=== PATIENT | male | born 1945 | race Caucasian/White ===

== ENCOUNTER 2016-04-06 08:00 | Outpatient (CLI) | payer MEDICARE, OTHER | END 2016-04-06 23:59 | disposition home or self-care (01) | DX: E11.9 Type 2 diabetes mellitus without complications (principal) ==

== ENCOUNTER 2019-02-18 12:53 | Outpatient (CLI) | payer MEDICARE, OTHER ==
[2019-02-18 13:46] VITALS: BP 146/69
--- NOTE | 2019-02-18 13:46 | SLEEP CARE CONSULTATION ---
Information from patient questionnaire entered by Triny Alvarez. I have reviewed and concur with the information entered by Triny Alvarez. This document represents the service I personally performed and the decisions made by me, Vicky Santiago MD, [facility]. History of Present Illness Reason for Visit: New patient, Previously diagnosed sleep apnea, sleep apnea on CPAP therapy, Re-establish care Chief Complaint: reports: Snoring Duration of Symptoms: 9 years Usual bedtime: 2230 Time it takes to fall asleep: 15 minutes Snores at night: Yes (without CPAP) Observed to quit breathing while asleep: No Number of times waking at night: 2-3 Reasons for waking at night: reports: Bathroom Toss, Turn, or Twitch while sleeping: Yes Recalls having dreams: Yes Usually gets out of bed at: 0800 Feels refreshed in the morning: No Morning headache: No Sleepy or fatigued during the day: No Ever fallen asleep while driving: No Takes day naps: Yes (sometimes ) Dreams during day naps: No Prior sleep studies: Yes Year and Where: 2008 [facility] Additional HPI information: I had the pleasure of seeing Mr. Craig today regarding obstructive sleep apnea- hypopnea. As you know, he is a 73 year old gentleman who was diagnosed with the sleep-disordered breathing here in 2008. The AHI was 11.3, and lady oxygen saturation, 85%. He was prescribed a CPAP device set at 7 12 cmH2O. He uses every night and all night. The compliance data show usage in 151 out of the past 180 nights, averaging 8.3 hours a night. The few nights he did not use it was because he used his old machine while sleeping in the living room. The residual AHI is 4.6 and average time in large leak per day is 2 seconds. He wears a ResMed Quattro full face mask. He got his supplies from [employer]. He finds the treatment very beneficial. CPAP Compliance Data - Data Reviewed with Patient Average duration of nightly device use: 8h 17m Compliance rate %: 80.6 Current pressure setting (cmH2O): 10-11 Humidity settin Heated hose settin Average residual AHI: 4.6 Average large leak: 2s Subjective Initial Lincoln Sleepiness Scale score: 6 Past Medical History Past Medical History: reports: Diabetes, Arthritis, Gout, Impotence, Other (kidney failure) Social History The patient's occupation is retired. Patient is and lives in [place]. Have you smoked in the past 12 months: No Alcohol use: No Caffeine use: Yes Caffeine amount and frequency: 1-2 cans soda/day Family History Family history of sleep disordered breathing: No Allergies and Home Medications Drug allergies reviewed: Yes Home medication list reviewed: Yes Review of Systems Cardiovascular: reports: high blood pressure, irregular heart rate or pulse, leg or foot swelling Respiratory: denies: shortness of breath, wheeze, sputum production, chronic cough, other Gastrointestinal: denies: heartburn, difficulty swallowing, nausea, vomitting, diarrhea, abdominal pain, other Urinary: reports: impotence Neurological: denies: headaches, seizure, head trauma, disorientation, speech dysfunction, gait or balance problems, fainting or unconsciousness, other Psychiatric: denies: Attention Deficit Hyperactivity, anxiety, depression, mood disorder, claustrophobia, other Ear/Nose/Throat: reports: wisdom teeth removed Endocrine: reports: thyroid disease Musculoskeletal: reports: joint pain, back pain, muscle pain or cramping Immunologic: reports: itching Physical Exam Vital signs obtained and entered by: Dr. Santiago Blood Pressure: 146/69 Heart Rate: 48 O2 Saturation: 97 Height: 5 ft 10 in Weight: 220 lb Body Mass Index: 31.5 BMI Classification: Obesity Class 1 Neck circumference: 18.5 Mood/affect: normal HEENT: No craniofacial malformation Nostrils: patent to airflow Turbinates: normal Septum: midline Mouth and throat: narrow oropharynx Soft palate: long Hard palate: normal Uvula: normal Uvula visualization: 50% Mallampati Class II Tongue: normal in size Tonsils: absent bilaterally Chin and jaw: normal size and position Neck: normal w/o lymphadenopathy or thyromegaly Heart: regular rate and rhythm (bradycardic) Lungs: clear bilaterally Abdomen: soft, non-tender Extremities: no edema or clubbing Neurologic: intact, no focal deficits Impression and Plan IMPRESSION: 1. Obstructive Sleep Apnea-Hypopnea Syndrome, mild, as previously diagnosed. The patient has had good treatment compliance. The current pressure setting appears effective and comfortable. The patient experiences improvement on the treatment. Narrow oropharynx and obesity are common predisposing factors for obstructive sleep apnea-hypopnea syndrome. I will order him new supplies today. Plan: 1. Prescription made for supplies. 2. Try ResMed AirTouch F-20 full face mask. 3. Try to lose weight. 4. Return for follow up in a year or earlier if there is any problem. I spent 100% of this 20 minute visit face to face with the patient with greater than 50% of this was spent time counseling the patient and coordination of care.
== END 2019-02-18 12:54 | disposition home or self-care (01) ==
LOC: SC 12:53
PROVIDERS: ATTEND Internal Medicine Pulmonary Disease
DX: G47.33 Obstructive sleep apnea (adult) (pediatric) (principal); E66.9 Obesity, unspecified; Z68.31 Body mass index [BMI] 31.0-31.9, adult

== ENCOUNTER 2020-01-27 11:01 | Outpatient (CLI) | payer MEDICARE, OTHER ==
--- NOTE | 2020-01-27 11:29 | SLEEP CARE CONSULTATION ---
Information from patient questionnaire entered by Arabella Young. I have reviewed and concur with the information entered by Arabella Young. This document represents the service I personally performed and the decisions made by , Marce Leos ARNP. History of Present Illness Service Date and Time: 01/27/2020 1101 Previous diagnosis: Mild, Obstructive Sleep Apnea-Hypopnea Syndrome AHI: 11.3 (in 2008) Reason for follow up: first compliance after device update Equipment type: CPAP Equipment obtained from: [employer] (getting supplies as needed) Mask style: Full face (AirTouch F20) Backup mask available: Yes (old mask) Last cushion change: 3 weeks ago Prior sleep studies: Yes Year and Where: 2008 - [facility] additional information: STEFANI SMITH JR was diagnosed to have mild, AHI 11.3, obstructive sleep apnea-h ypopnea syndrome and returned today for CPAP therapy first compliance after device update follow-up. CPAP Compliance Data - Data Reviewed with Patient Average duration of nightly device use: 9.9 Compliance rate %: 90 Current pressure setting (cmH2O): 10-11 Humidity settin Heated hose settin Average residual AHI: 1.4 Average large leak: 1 min 17 sec Subjective Patient concerns: reports: dry mouth, nose, throat (dry mouth, arben in the morning). denies: aerophagia, mask discomfort, air blowing in eyes, mask leak noise, condensation in mask/hose, nasal congestion, epistaxis, other Observed to snore while using device: No Current pressure setting perceived as: comfortable On therapy, patient: reports: sleeping better, being more awake and alert during the day, more rested overall. denies: awakening more refreshed (has stage 4 kidney cancer), drowsiness while driving Initial [place]tt Sleepiness Scale score: 8 (in 2008) Current [place]tt Sleepiness Scale score: 4 Allergies and Home Medications Drug allergies reviewed: Yes (NKDA) Home medication list reviewed: Yes (no changes) Review of Systems Review of systems same as previous: Yes (no changes) Physical Exam Heart Rate: 93 O2 Saturation: 99 Height: 5 ft 9 in Weight: 224 lb Body Mass Index: 33.0 BMI Classification: Obese Impression and Plan 1. Obstructive Sleep Apnea-Hypopnea Syndrome, mild, with good treatment compliance and good apnea control. On CPAP therapy, the patient has better sleep quality and is more rested overall. He has had some dry mouth in the morning. Oral dryness can be reduced by adjusting humidity setting higher or heated hose lower or by adjusting both settings. He voiced understanding and agreement to plan of care. I reviewed with patient to call with any problems with pressure feeling too much or too little or if he experiences aerophagia. Patient's apnea severity and rationale for treatment to reduce apnea, improve sleep quality and reduce cardiovascular and cerebrovascular events was reviewed. I also reviewed the benefit of consistent device use of CPAP for his diabetes. * Continue autoCPAP pressure at 10-11 cmH2O * Notify me if snoring with mask or feeling that the pressure is too much or too little * Attempt to lose weight * Call this office if any problems using CPAP * Return for follow up in 1 year, or sooner if concerns arise Counseling Topics: Spare mask, Weight loss health impact Visit Type: In Office Time Spent with Patient (minutes): 16 Provider Statement: I spent 100% of the Face to Face Visit with the patient with greater than 50% spent counseling the patient and coordination of care.
== END 2020-01-27 11:02 | disposition home or self-care (01) ==
LOC: SC 11:01
PROVIDERS: ATTEND Nurse Practitioner Family
DX: G47.33 Obstructive sleep apnea (adult) (pediatric) (principal); E66.9 Obesity, unspecified; Z68.33 Body mass index [BMI] 33.0-33.9, adult
CPT/HCPCS: 99212; G0463

== ENCOUNTER 2020-11-15 10:38 | Outpatient (CLI) | payer MEDICARE, OTHER ==
--- NOTE | 2020-11-22 14:36 | ONCOLOGY/HEMATOLOGY VISIT ---
HEME/ONC PROGRESS NOTE: cc: Kasi Lee MD; Mary Fitzgerald MD HEM/ONCOLOGY HISTORY: 1. 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 a. Hypercalcemia, renal failure and anemia. No kidney biopsy per educational assistant teacher recommendation. b. Bone marrow biopsy in 02/2020. Negative Congo red stain. Normal plasma cell phenotype by flow cytometry. No light chain restriction. Negative SPEP, UPEP and skeletal survey. c. Active monitoring for myeloma or amyloidosis. 2. Stage IV kidney disease, Fistula placed no dialysis yet ASSESSMENT/PLAN: 1. Elevated free kappa light chain. Level is higher at last time including the ratio. However stable anemia and renal failure. No hypercalcemia. a. We will have a short interval to repeat [place]/lambda light chain ratio. If again on the rise, we will consider repeat myeloma staging work-up such as PET/CT scan of the body which would be more sensitive. Hip replacement preventing MRI. b. RN will call me and him To follow-up on the most recent light chain blood draw result which is not available yet at this point; c. Repeat blood test in 2-month. Will also add amyloidosis marker such as pro-NT-BNP 2.Renal failure and diabetes and sleep apnea. Continue to see other specialist. HISTORY OF CURRENT ILLNESS/REVIEW OF SYSTEMS: As dictated on 04/12/20 for detailed history. Dion is here for ongoing care regarding above issues. Overall condition has been stable since last seen.Physically quite active taking of yard and housework. Chronic lower back pain without any change in quality. PFSH. Diabetes on insulin. Bilateral hip replacement preventing MRI of the bone marrow. Sleep apnea on CPAP. Hard hearing. PHYSICAL EXAM: Weight 101 kg. BP 156/64. HEENT; no jaundice, Lung; clear to auscultation and percussion. No signs of pleural effusion by percussion. Heart; regular rhythm no murmur Abdomen; soft nontender, no hepatosplenomegaly, no signs of ascites. Central obesity noted. Extremity; no clubbing, no peripheral edema, no cyanosis, Skin. No new rash. No petechia or purpura. Lymph nodes: no palpable adenopathy in the cervical, supeerclavicular fossa, or axilla areas. [place]/lambda 127/41=3.09 done 7 weeks ago; pending recent draw results. Clinical Data: Allergies No Known Drug Allergies Allergy (Verified 10/11/20 14:29) Home Medications Aspirin Chewable [[facility] [place] F Aspirin] 81 mg PO DAILY 01/19/20 [History Last Taken Unknown] Colchicine 0.6 mg PO DAILY 01/19/20 [History Last Taken Unknown] Fluocinonide [Fluocinonide 0.05% solution] 60 ml PO DAILY 01/19/20 [History Last Taken Unknown] Furosemide 40 mg PO DAILY 01/19/20 [History Last Taken Unknown] Hydralazine HCl 50 mg PO DAILY 01/19/20 [History Last Taken Unknown] Insulin Glargine [Lantus Solostar] 20 ml IM DAILY 01/19/20 [History Last Taken Unknown] Levothyroxine Sodium 88 mcg PO DAILY 01/19/20 [History Last Taken Unknown] NIFEdipine [Procardia Xl] 30 mg PO TID 01/19/20 [History Last Taken Unknown] Simvastatin 20 mg PO DAILY 01/19/20 [History Last Taken Unknown] Spironolactone 25 mg PO DAILY 01/19/20 [History Last Taken Unknown] Terazosin HCl 5 mg PO DAILY 01/19/20 [History Last Taken Unknown]
== END 2020-11-15 10:39 | disposition home or self-care (01) ==
LOC: LAB.N 10:38
PROVIDERS: ATTEND Family Medicine
DX: E83.52 Hypercalcemia (principal); Z53.9 Procedure and treatment not carried out, unspecified reason
CPT/HCPCS: 36415; 80048; 82310; 83883; 85027

== ENCOUNTER 2021-03-08 12:48 | Outpatient (CLI) | payer MEDICARE, OTHER ==
--- NOTE | 2021-03-08 13:24 | SLEEP CARE CONSULTATION ---
Information from patient questionnaire entered by Kalyani Gloria MA. I have reviewed and concur with the information entered by Kalyani Gloria MA. This document represents the service I personally performed and the decisions made by , Marce Leos ARNP. History of Present Illness Service Date and Time: 03/08/2021 1248 Previous diagnosis: Mild, Obstructive Sleep Apnea-Hypopnea Syndrome AHI: 11.3 (in 2008) Reason for follow up: annual Equipment type: CPAP Equipment obtained from: [employer] (getting supplies as needed) Mask style: Full face (AirTouch F20) Backup mask available: Yes (old mask) Last cushion change: 2 weeks Prior sleep studies: Yes Year and Where: 2008 - [facility] HPI additional information: STEFANI SMITH was diagnosed to have mild, AHI 11.3, obstructive sleep apnea- hypopnea syndrome and returned today for CPAP therapy annual follow-up. Sleep Study - Results Prior sleep studies: Yes Year and Where: 2008 - [facility] CPAP Compliance Data - Data Reviewed with Patient Average duration of nightly device use: 9 HOURS 24 MINUTES Compliance rate %: 87.2 Current pressure setting (cmH2O): 10-11 Humidity settin Heated hose settin Average residual AHI: 1.8 Average large leak: 1 MINUTE 12 SECONDS Subjective Patient concerns: denies: aerophagia, mask discomfort, air blowing in eyes, mask leak noise, condensation in mask/hose, nasal congestion, dry mouth, nose, throat, epistaxis, other Observed to snore while using device: No Current pressure setting perceived as: too low On therapy, patient: reports: sleeping better, awakening more refreshed, being more awake and alert during the day, more rested overall. denies: drowsiness while driving Initial [place] Sleepiness Scale score: 8 (in 2008) Current [place] Sleepiness Scale score: 2 Allergies and Home Medications Home medication list reviewed: Yes (no changes) Review of Systems Review of systems same as previous: Yes (no changes) Physical Exam Vital signs obtained and entered by: Ricardo GALVAN Blood Pressure: 144/78 (right) Cuff size: wrist Heart Rate: 63 O2 Saturation: 98 (with mask) Height: 5 ft 9 in Weight: 224 lb (per PT info) Body Mass Index: 33.0 BMI Classification: Obese Impression and Plan 1. Obstructive Sleep Apnea-Hypopnea Syndrome, mild, with good treatment compliance and good apnea control. On CPAP therapy, the patient has better sleep quality and is more rested overall. Patient states the pressure might be just a little low and is asking for a slight increase. I will adjust his pressure to 10-12 cmH2O. Patient will let me know if the pressure still feels to low or is uncomfortable. Patient is satisfied with current CPAP therapy and has significant improvement of his sleep apnea. This last year his DreamStation went on recall. He scented back to [facility] and he received a new DreamStation 2 that he started and has good treatment compliance. Patient's apnea severity and rationale for treatment to reduce apnea, improve sleep quality and reduce cardiovascular and cerebrovascular events was reviewed. I also reviewed the benefit of consistent device use of CPAP for diabetes. Patient was encouraged to lose weight for their overall health and to reduce apneas. * Change auto CPAP pressure to 10-12 cmH2O * Notify me if snoring with mask or feeling that the pressure is too much or too little * Attempt to lose weight * Call this office if any problems using CPAP * Return for follow up in 1 year, or sooner if concerns arise Counseling Topics: Spare mask, Weight loss health impact Visit Type: In Office Time Spent with Patient (minutes): 12 Provider Statement: I spent 100% of the Face to Face Visit with the patient with greater than 50% spent counseling the patient and coordination of care.
[2021-03-08 13:25] VITALS: BP 144/78
== END 2021-03-08 12:49 | disposition home or self-care (01) ==
LOC: SC 12:48
PROVIDERS: ATTEND Nurse Practitioner Family
DX: G47.33 Obstructive sleep apnea (adult) (pediatric) (principal); E66.9 Obesity, unspecified; Z68.33 Body mass index [BMI] 33.0-33.9, adult
CPT/HCPCS: 99212; G0463

== ENCOUNTER 2021-05-03 10:24 | Outpatient (CLI) | payer MEDICARE, OTHER | END 2021-05-03 10:25 | disposition home or self-care (01) | LOC: LAB.N 10:24 | PROVIDERS: ATTEND Internal Medicine Hematology & Oncology | DX: Z53.9 Procedure and treatment not carried out, unspecified reason (principal) ==

== ENCOUNTER 2021-11-22 11:41 | Outpatient (CLI) | payer MEDICARE, OTHER ==
[2021-11-22 18:38] LABS: ALBUMIN 4.1 g/dL (3.2-5.5); ALBUMIN/GLOBULIN RATIO 1.3 (1.0-2.2); ALKALINE PHOSPHATASE 105 IU/L (42-121); ALT ALANINE AMINOTRANSFERASE 21 IU/L (10-60); AST ASPARTATE AMINOTRANSFERASE 20 IU/L (10-42); BILIRUBIN,TOTAL 0.9 mg/dL (0.2-1.0); BUN - BLOOD UREA NITROGEN 65 mg/dL (6-20); CALCIUM 9.9 mg/dL (8.5-10.3); CARBON DIOXIDE - CO2 21 mmol/L (21-32); CHLORIDE 105 mmol/L (101-111); CHOL/HDL RATIO 3.4 (<5.0); CHOLESTEROL 139 mg/dL; CREATININE 4.7 mg/dL (0.6-1.2); GFR - MDRD 12 (>89); GLUCOSE 101 mg/dL (70-100); HDL CHOLESTEROL 41 mg/dL; LDL CHOLESTEROL,CALCULATED 80 mg/dL; POTASSIUM 4.2 mmol/L (3.5-5.0); SODIUM 137 mmol/L (135-145); TOTAL PROTEIN 7.2 g/dL (6.7-8.2); TRIGLYCERIDES 89 mg/dL; VLDL CHOLESTEROL 18 mg/dL
[2021-11-22 18:55] LABS: MICROALBUM/CREATININE RATIO,UR 253.3 ug/mg (<30.0); MICROALBUMIN,URINE 23.3 mg/dL (0-300.0)
[2021-11-22 21:03] LABS: ESTIMATED AVERAGE GLUCOSE 120 mg/dL (70-100); HEMOGLOBIN A1c% 5.8 % (4.27-6.07)
== END 2021-11-22 11:42 | disposition home or self-care (01) ==
LOC: LAB.N 11:41
PROVIDERS: ATTEND Internal Medicine Endocrinology, Diabetes & Metabolism
DX: E11.22 Type 2 diabetes mellitus with diabetic chronic kidney disease (principal); N18.5 Chronic kidney disease, stage 5; Z79.4 Long term (current) use of insulin
CPT/HCPCS: 36415; 80053; 80061; 82043; 82570; 83036; 83721

== ENCOUNTER 2022-03-24 12:16 | Outpatient (CLI) | payer MEDICARE, OTHER ==
[2022-03-24 18:51] LABS: ALBUMIN 4.1 g/dL (3.2-5.5); ALBUMIN/GLOBULIN RATIO 1.2 (1.0-2.2); ALKALINE PHOSPHATASE 119 IU/L (42-121); ALT ALANINE AMINOTRANSFERASE 26 IU/L (10-60); AST ASPARTATE AMINOTRANSFERASE 24 IU/L (10-42); BUN - BLOOD UREA NITROGEN 62 mg/dL (6-20); CALCIUM 10.3 mg/dL (8.5-10.3); CARBON DIOXIDE - CO2 22 mmol/L (21-32); CHLORIDE 103 mmol/L (101-111); CHOL/HDL RATIO 3.5 (<5.0); CHOLESTEROL 138 mg/dL; CREATININE 5.7 mg/dL (0.6-1.2); GFR - MDRD 10 (>89); GLUCOSE 97 mg/dL (70-100); HDL CHOLESTEROL 40 mg/dL; LDL CHOLESTEROL,CALCULATED 76 mg/dL; LDL/HDL RATIO 1.9 (<3.6); POTASSIUM 4.7 mmol/L (3.5-5.0); SODIUM 140 mmol/L (135-145); TOTAL PROTEIN 7.5 g/dL (6.7-8.2); TRIGLYCERIDES 109 mg/dL; VLDL CHOLESTEROL 22 mg/dL
== END 2022-03-24 12:17 | disposition home or self-care (01) ==
LOC: LAB.N 12:16
PROVIDERS: ATTEND Internal Medicine Endocrinology, Diabetes & Metabolism
DX: E11.22 Type 2 diabetes mellitus with diabetic chronic kidney disease (principal); N18.5 Chronic kidney disease, stage 5; Z79.4 Long term (current) use of insulin
CPT/HCPCS: 36415; 80053; 80061; 82985; 83721

== ENCOUNTER 2022-12-10 00:14 | Outpatient (CLI) | payer MEDICARE, OTHER | END 2022-12-10 00:15 | disposition E | LOC: EMS 00:14 | DX: I46.9 Cardiac arrest, cause unspecified (principal) | CPT/HCPCS: A0425; A0428 ==